=== PATIENT | male | born 1965 | race Caucasian/White ===

== ENCOUNTER 2020-09-03 11:25 | Emergency (ER) | payer OTHER ==
[2020-09-03 11:52] VITALS: TEMP 98.8; BMI 23.6
[2020-09-03 13:35] LABS: BASO % 0.2 % (0-2.0); EOS % 0.4 % (0-4.5); HEMATOCRIT 29.9 % (35.4-49); HEMOGLOBIN 9.8 GM/dL (11.7-16.9); LYMPH % 15.7 % (8-40); MCH 26.7 pg (25.7-33.7); MCHC 32.9 g/dl (32.0-35.9); MEAN CELL VOLUME 81.2 fl (80-96); MEAN PLT VOLUME 8.6 fl (7.5-11.1); MONO % 9.7 % (3.8-10.2); PLATELET COUNT 305 K/MM3 (134-434); RBC 3.68 M/mm3 (4.00-5.60); RDW 15.9 % (11.9-15.9); WHITE BLOOD COUNT 8.6 K/mm3 (4.0-10.0)
[2020-09-03 13:41] LABS: INR 1.24 (0.83-1.09); PROTHROMBIN TIME (PATIENT) 14.9 SEC (9.7-13.0)
[2020-09-03 13:44] LABS: ACTIVATED PTT 30.1 SECONDS (25.2-36.5)
[2020-09-03] MEDS ORDERED: METHADONE HCL 10 MG TABLET PO ONE (13:49)
[2020-09-03 13:52] LABS: URINE COLOR YELLOW
[2020-09-03 13:53] LABS: CHLORIDE 106 mmol/L (98-107); PH,URINE 8.5 (5.0-8.0); POTASSIUM 3.6 mmol/L (3.5-5.1); SODIUM 139 mmol/L (136-145); URINE APPEARANCE CLEAR; URINE BILIRUBIN NEGATIVE (NEGATIVE); URINE GLUCOSE (UA) NEGATIVE (NEGATIVE); URINE KETONE NEGATIVE (NEGATIVE); URINE LEUK ESTERASE NEGATIVE (NEGATIVE); URINE NITRITE NEGATIVE (NEGATIVE); URINE PROTEIN NEGATIVE (NEGATIVE)
[2020-09-03 13:55] LABS: CALCIUM 8.9 mg/dL (8.5-10.1)
[2020-09-03 13:56] LABS: ANION GAP 9 MMOL/L (8-16); BLOOD UREA NITROGEN 11.8 mg/dL (7-18); CO2 24 mmol/L (21-32); GLUCOSE,RANDOM 94 mg/dL (74-106)
[2020-09-03] MEDS ORDERED: METHADONE HCL 10 MG TABLET ONE (13:58)
[2020-09-03 13:59] LABS: CREATININE 0.6 mg/dL (0.55-1.3); SGOT/AST 25 U/L (15-37); SGPT/ALT 24 U/L (13-61)
[2020-09-03 14:00] LABS: BILIRUBIN,TOTAL 1.1 mg/dL (0.2-1)
[2020-09-03 14:01] LABS: TOT PROT 7.1 g/dl (6.4-8.2)
[2020-09-03 14:02] LABS: ALK PHOS 151 U/L (45-117)
[2020-09-03] MEDS ORDERED: VANCOMYCIN 1,000 MG in DEXTROSE 5%-WATER - 250 ML IVPB ONE (15:26)
[2020-09-03] MEDS ORDERED: CIPROFLOXACIN 400 MG/D5W 400 MG/200 ML IVPB IVPB ONE (15:26)
[2020-09-03] MEDS ORDERED: GENTAMICIN INJECTION 100 MG in DEXTROSE 5%-WATER - 250 ML IVPB SCH (15:30)
[2020-09-03] MEDS ORDERED: VANCOMYCIN 1 GRAM (PRE-DOCKED) 1,000 MG/250 ML BAG IVPB ONE (16:01)
[2020-09-03] MEDS ORDERED: SODIUM CHLORIDE 0.9% 500 ML INFUS.BAG IV ONE (17:51)
[2020-09-03 18:32] VITALS: BP 145/79; PULSE 81
== END 2020-09-03 19:53 | disposition left against medical advice (07) ==
LOC: JER 11:25
DX: M79.606 Pain in leg, unspecified (principal)
CPT/HCPCS: 36415; 70450-TC; 71045-TC-FY; 71250-TC; 73701-TC-RT; 80053; 81003; 84443; 84484; 85025; 85610; 85730; 87040; 87086; 93005; 93010; 99285-25; C9803; Q9967; U0003